=== PATIENT | male | born 1985 | race Caucasian/White ===

== ENCOUNTER 2021-09-26 14:40 | Emergency (ER) | payer BC ==
[~2021-09-26] VITALS: Ht 182.9 cm; Wt 60.9 kg
--- NOTE | 2021-09-26 14:56 | NUR ---
Call to poison control with recomendations for BMP with repeat in 6 hrs to watch for metabolic acidosis and acute kidney injury. Narcan if patient shows opoid toxicity. Acetaminophen level at 1530, if >50 then begin mucomyst for 21 hours, recomends salicilate and alcohol levels as well.
[2021-09-26 15:35] LABS: BASOPHILS % (AUTO) 0.4 % (0-1); EOSINOPHILS % (AUTO) 0.2 % (0-6); HEMATOCRIT 45.8 % (42.0-52.0); HEMOGLOBIN 15.8 g/dl (14.0-17.9); LYMPHOCYTES # (AUTO) 1.9 X10'3 (1.1-4.8); LYMPHOCYTES % (AUTO) 14.1 % (21-51); MEAN CORPUSCULAR HEMOGLOBIN 31.8 PG (27.0-31.0); MEAN CORPUSCULAR HGB CONC 34.5 g/dL (33.0-36.5); MEAN CORPUSCULAR VOLUME 92.3 FL (78-98); MEAN PLATELET VOLUME 8.9 FL (7.4-10.4); MONOCYTES # (AUTO) 1.2 X10'3 (0-0.9); MONOCYTES % (AUTO) 8.7 % (2-12); NEUTROPHILS # (AUTO) 10.1 X10'3 (1.8-7.7); NEUTROPHILS % (AUTO) 76.6 % (42-75); PLATELET COUNT 263 X10'3 (140-440); RED BLOOD COUNT 4.96 X10'6 (4.70-6.10); WHITE BLOOD COUNT 13.2 X10'3 (4.5-11.0)
[2021-09-26 15:47] LABS: ACETAMINOPHEN 6.3 UG/ML (10-30); ALBUMIN 4.2 G/DL (3.4-5.0); ALBUMIN/GLOBULIN RATIO 1.5 (1.1-1.5); ALKALINE PHOSPHATASE 85 IU/L (46-116); ANION GAP 11 (8-16); ASPARTATE AMINO TRANSFERASE 13 U/L (10-37); BILIRUBIN,TOTAL 0.6 MG/DL (0.1-1.0); BLOOD UREA NITROGEN 6 MG/DL (7-18); BUN/CREATININE RATIO 5.8 (5.4-32.0); CALCIUM 9.2 MG/DL (8.5-10.1); CHLORIDE 103 MMOL/L (99-107); CREATININE 1.04 MG/DL (0.60-1.10); GLUCOSE 114 MG/DL (70-104); POTASSIUM 3.5 MMOL/L (3.5-5.1); SODIUM 140 MMOL/L (135-145); TOTAL CARBON DIOXIDE 25.6 MMOL/L (24-32); eGFR 81 ML/MIN
[2021-09-26 15:51] LABS: ALANINE AMINOTRANSFERASE < 6 U/L (12-78); ETHANOL < 0.010 GM/DL (0.0-0.010)
[2021-09-26 16:24] LABS: CLARITY,URINE SLIGHTLY CLOUDY (Clear); COLOR,URINE YELLOW (Yellow); GLUCOSE, URINE NEGATIVE (Neg); KETONES,URINE >=80 mg/dl (Neg); LEUKOCYTE ESTERASE ,URINE NEGATIVE (Neg); NITRITES, URINE NEGATIVE (Neg); OCCULT BLOOD,URINE NEGATIVE (Neg); PROTEIN,URINE 30 mg/dl (Neg)
[2021-09-26 16:32] LABS: MUCUS STRANDS MODERATE /LPF (Neg); SQUAMOUS EPITHELIAL CELL,UR FEW /LPF (FEW); UA COLLECTION TYPE NON-SPECIFIED
[2021-09-26 16:34] LABS: BACTERIA,URINE FEW /HPF (Neg); RBC,URINE 0-2 /HPF (0-2)
[2021-09-26 16:36] LABS: URINE AMPHETAMINE SCREEN NEGATIVE (Neg); URINE BARBITUATE SCREEN NEGATIVE (Neg); URINE BENZODIAZEPINES SCREEN NEGATIVE (Neg); URINE CANNABINOID SCREEN POSITIVE (Neg); URINE COCAINE SCREEN NEGATIVE (Neg); URINE METHADONE SCREEN NEGATIVE (Neg); URINE OPIATE SCREEN POSITIVE (Neg); URINE PHENCYCLIDINE SCREEN NEGATIVE (Neg)
--- NOTE | 2021-09-26 17:44 | NUR ---
Pt. ambulated over from the main ER accompanied by his mother and Tech.
--- NOTE | 2021-09-26 18:14 | NUR ---
PACKET FA[facility]ED TO [facility]
--- NOTE | 2021-09-26 18:19 | NUR ---
Pt. is laying in bed at this time, his mother remains at bedside.
--- NOTE | 2021-09-26 18:57 | NUR ---
One to one with the patient who assess severity of depressive symptoms and self harm risk. The patient is easily tearful and very irritable and negative. He does not want to be on a mental health hold. He reports that he has been over sleeping. Psychotic symptoms are denied. Energy level is low. He is help rejecting. He reports his anxiety is very high.
--- NOTE | 2021-09-26 19:04 | NUR ---
Patient was asked if he would like to have medication for anxiety. He was angry and replied back, "so you can drug me up and make me compliant!?" "I want to see a optimization specialist! I'm being held against my will" Patient made aware anxiety medication was only for his benefit. He is very negative.
--- NOTE | 2021-09-26 19:51 | NUR ---
The patient staring straight ahead. He is demanding to see a pattern fitter.
--- NOTE | 2021-09-26 20:20 | NUR ---
Report to Jacki at Poison Control. Updated her on labs and vital signs and patient presentation. She will call back after final BMP complete.
--- NOTE | 2021-09-26 21:43 | NUR ---
The patient is laying on his back with his eyes closed and appears to be sleeping
[2021-09-26 21:53] LABS: ANION GAP 8 (8-16); BLOOD UREA NITROGEN 7 MG/DL (7-18); BUN/CREATININE RATIO 5.7 (5.4-32.0); CALCIUM 8.8 MG/DL (8.5-10.1); CHLORIDE 109 MMOL/L (99-107); CREATININE 1.23 MG/DL (0.60-1.10); GLUCOSE 86 MG/DL (70-104); POTASSIUM 4.2 MMOL/L (3.5-5.1); SODIUM 145 MMOL/L (135-145); TOTAL CARBON DIOXIDE 27.6 MMOL/L (24-32); eGFR 67 ML/MIN
--- NOTE | 2021-09-26 22:07 | NUR ---
Reviewed BMP with poison control. They recommend encourage fluids and recheck 2nd to increased Creatinine
--- NOTE | 2021-09-26 22:13 | NUR ---
Discussed poison control recommendations with Dr. Lucas and orders received. The patient given juice and fluids and encouraged to increase PO fluids which he is currently doing.
--- NOTE | 2021-09-26 22:42 | NUR ---
The patient is currently laying on his left side with his eyes closed. Respirations even and unlabored.
--- NOTE | 2021-09-27 | NUR ---
The patient appears to be sleeping. No distress noted. Respirations even and unlabored
--- NOTE | 2021-09-27 00:50 | NUR ---
The patient appears to be sleeping. Respirations even and unlabored
--- NOTE | 2021-09-27 02:01 | NUR ---
The patient appears to be sleeping. Just turned over to his right side. Respirations even and unlabored
--- NOTE | 2021-09-27 02:54 | NUR ---
The patient appears to be sleeping
[2021-09-27] MEDS ORDERED: NO HOME MEDS (03:24)
--- NOTE | 2021-09-27 04:17 | NUR ---
The patient appears to be sleeping
--- NOTE | 2021-09-27 04:52 | NUR ---
The patient appears to be sleeping
--- NOTE | 2021-09-27 05:37 | NUR ---
The patient up to use the bathroom
[2021-09-27 06:24] VITALS: BP 117/76
--- NOTE | 2021-09-27 07:00 | NUR ---
Received pt sleeping in bed. Pt did awake briefly while nurse was checking on him. No complaints at this time. Pt returned to sleep.
[2021-09-27 07:38] LABS: ANION GAP 12 (8-16); BLOOD UREA NITROGEN 10 MG/DL (7-18); BUN/CREATININE RATIO 5.5 (5.4-32.0); CALCIUM 8.9 MG/DL (8.5-10.1); CHLORIDE 107 MMOL/L (99-107); CREATININE 1.81 MG/DL (0.60-1.10); GLUCOSE 85 MG/DL (70-104); POTASSIUM 3.8 MMOL/L (3.5-5.1); SODIUM 144 MMOL/L (135-145); TOTAL CARBON DIOXIDE 24.7 MMOL/L (24-32); eGFR 43 ML/MIN
--- NOTE | 2021-09-27 09:00 | NUR ---
Pt lying awake in bed. Pt refuses breakfast and states, "I just want to sleep until I can go home." Pt initially refused lab draw, "You're holding me against my will" After discussion with RN, pt allowed blood draw.
--- NOTE | 2021-09-27 09:22 | NUR ---
Received a call from Jillian at poison control. Pt creatinine has increased from 1.04 at 1500 yesterday to 1.21 at 2100 yesterday to 1.8 today at 0720. Recommendation by Jillian is to push fluids and recheck in a few hours.
--- NOTE | 2021-09-27 11:00 | NUR ---
Pt mom visiting at bedside. Pt lying quietly without talking to mother.
== END 2021-09-27 12:29 ==
LOC: ER 14:41
DX: T39.312A Poisoning by propionic acid derivatives, intentional self-harm, initial encounter (principal); T40.602A Poisoning by unspecified narcotics, intentional self-harm, initial encounter; F12.10 Cannabis abuse, uncomplicated; Y92.89 Other specified places as the place of occurrence of the external cause; Z20.822 Contact with and (suspected) exposure to COVID-19
CPT/HCPCS: 36415; 80048; 80053; 80305; 80320; 80329; 81001; 84443; 85025; 87088; 87635; 93005; 99285; C9803